=== PATIENT | male | born 1975 | race Caucasian/White ===

== ENCOUNTER 2017-05-01 08:11 | Emergency (ER) | payer OTHER ==
[~2017-05-01] VITALS: Ht 160 cm; Wt 64.1 kg
[~2017-05-01 08:11] MED LIST: IBUP-1277 PO; PHENPAK2 PO
[2017-05-01 08:16] VITALS: TEMP 36.7; Ht 160 cm; Wt 64.1 kg
[2017-05-01] MEDS ORDERED: SODIUM CHLORIDE 0.9% 1000ML 2,000 ML IV STA (08:23)
[2017-05-01 08:44] LABS: BASO % 0.2 %; BASO ABS # 0.01 K/uL (0-0.2); COMPLETE YES; EOS % 0.8 %; HEMATOCRIT 41.3 % (42-52); IG% 0.2 %; LYMPH % 19.9 %; LYMPH ABS # 0.94 K/uL (1.2-3.4); MEAN CELL VOLUME 86.4 fL (80-100); MEAN CORPUSCULAR HEMOGLOBIN 30.5 pg (25-34); MEAN CORPUSCULAR HGB CONC 35.4 g/dl (32-36); MEAN PLATELET VOLUME 9.6 fL (7.4-10.4); MONO % 8.1 %; NEUT % 70.8 %; PLATELET COUNT 242 K/uL (130-400); RED BLOOD COUNT 4.78 M/uL (4.7-6.1); WHITE BLOOD COUNT 4.72 K/uL (4.8-10.8)
[2017-05-01 09:02] LABS: BUN/CREATININE RATIO 5.9 (10-20); CREATININE 0.97 mg/dl (0.60-1.40); POTASSIUM 3.6 mmol/L (3.5-5.1)
[2017-05-01 10:04] LABS: URINE APPEARANCE CLEAR (CLEAR); URINE BILIRUBIN NEG (NEG); URINE COLOR YELLOW; URINE NITRITE NEG (NEG); URINE SPECIFIC GRAVITY 1.008 (1.000-1.030); UROBILINOGEN NEG (NEG)
[2017-05-01 10:10] LABS: MANUAL MICROSCOPIC REQUIRED? NO; REVIEW REQ? NO
--- NOTE | 2017-05-01 10:39 | EMERGENCY ROOM VISIT NOTE ---
History Report prepared by Kamille: Jordy Ayala Under the Supervision of: Dr. Lorenzo Leyva M.D. First contact with patient: 08:22 Chief Complaint: ABDOMINAL PAIN Stated Complaint: SEVERE STOMACH PAIN/FLU Nursing Triage Summary: Abd pain, nausea. Pt states that he had vomited and had diarrhea all through the night. "There is nothing left in me." per pt. History of Present Illness The patient is a 41 year old male who presents to the Emergency Room with complaints of intermittent vomiting starting last night, and he states that he last vomited around 0330. He currently rates his discomfort as a 7/10 in severity. He additionally states that he has been having diarrhea and diffuse abdominal pain. He states that he has not eaten anything unusual recently, and he states that his coworker was sick about a week ago. The patient states that he drank some coca-cola and some energy drink, and he did not vomit afterwards. He denies any active medical problems. Pt denies LOC, headache, fevers, chills, diaphoresis, visual changes, neck pain, chest pain, breathing difficulties, back pain, melena, hematochezia, urinary symptoms, numbness, weakness, lymphadenopathy, rash, or other complaints. Source of History: patient Onset: last night Position: other (global) Quality: other (vomiting) Timing: intermittent Associated Symptoms: + abdominal pain, + diarrhea Review of Systems See HPI for pertinent positives and negatives. A total of ten systems were reviewed and were otherwise negative. Past Medical & Surgical Surgical Problems: (1) H/O removal of cyst Family History Cancer FH: heart disease Social History Smoking Status: Former Smoker Alcohol Use: occasionally Marital Status: Housing Status: lives with family Occupation Status: employed Current/Historical Medications No Active Prescriptions or Reported Meds Allergies Coded Allergies: BEE STING (Unverified Allergy, Unknown, ., 05/01/17) Physical Exam Vital Signs Date Time Temp Pulse Resp B/P (MAP) Pulse Ox O2 Delivery O2 Flow Rate FiO2 05/01/17 11:09 64 16 115/69 99 05/01/17 10:33 58 16 111/67 99 05/01/17 08:16 36.7 84 16 122/82 99 Room Air Physical Exam GENERAL: Awake, alert, well-appearing, in no distress HENT: Normocephalic, atraumatic. Oropharynx unremarkable. EYES: Normal conjunctiva. Sclera non-icteric. NECK: Supple. No nuchal rigidity. FROM. No JVD. RESPIRATORY: Clear to auscultation. CARDIAC: Regular rate, normal rhythm. Extremities warm and well perfused. Pulses equal. ABDOMEN: Minimal diffuse abdominal tenderness. Soft, non-distended. No rebound or guarding. No masses. RECTAL: Deferred. MUSCULOSKELETAL: Chest examination reveals no tenderness. The back is symmetrical on inspection without obvious abnormality. There is no CVA tenderness to palpation. No joint edema. LOWER EXTREMITIES: Calves are equal size bilaterally and non-tender. No edema. No discoloration. NEURO: Normal sensorium. No sensory or motor deficits noted. SKIN: No rash or jaundice noted. Medical Decision & Procedures Laboratory Results 05/01/17 08:35 Red Blood Count 4.78, Mean Corpuscular Volume 86.4, Mean Corpuscular Hemoglobin 30.5, Mean Corpuscular Hemoglobin Concent 35.4, Mean Platelet Volume 9.6, Neutrophils (%) (Auto) 70.8, Lymphocytes (%) (Auto) 19.9, Monocytes (%) (Auto) 8.1, Eosinophils (%) (Auto) 0.8, Basophils (%) (Auto) 0.2, Neutrophils # (Auto) 3.34, Lymphocytes # (Auto) 0.94, Monocytes # (Auto) 0.38, Eosinophils # (Auto) 0.04, Basophils # (Auto) 0.01 05/01/17 08:35 Test 05/01/17 08:35 05/01/17 09:40 White Blood Count 4.72 K/uL (4.8-10.8) Red Blood Count 4.78 M/uL (4.7-6.1) Hemoglobin 14.6 g/dL (14.0-18.0) Hematocrit 41.3 % (42-52) Mean Corpuscular Volume 86.4 fL (80-100) Mean Corpuscular Hemoglobin 30.5 pg (25-34) Mean Corpuscular Hemoglobin Concent 35.4 g/dl (32-36) Platelet Count 242 K/uL (130-400) Mean Platelet Volume 9.6 fL (7.4-10.4) Neutrophils (%) (Auto) 70.8 % Lymphocytes (%) (Auto) 19.9 % Monocytes (%) (Auto) 8.1 % Eosinophils (%) (Auto) 0.8 % Basophils (%) (Auto) 0.2 % Neutrophils # (Auto) 3.34 K/uL (1.4-6.5) Lymphocytes # (Auto) 0.94 K/uL (1.2-3.4) Monocytes # (Auto) 0.38 K/uL (0.11-0.59) Eosinophils # (Auto) 0.04 K/uL (0-0.5) Basophils # (Auto) 0.01 K/uL (0-0.2) RDW Standard Deviation 40.5 fL (36.4-46.3) RDW Coefficient of Variation 12.7 % (11.5-14.5) Immature Granulocyte % (Auto) 0.2 % Immature Granulocyte # (Auto) 0.01 K/uL (0.00-0.02) Anion Gap 8.0 mmol/L (3-11) Est Creatinine Clear Calc Drug Dose 80.6 ml/min Estimated GFR () 111.9 Estimated GFR (Non- 96.6 BUN/Creatinine Ratio 5.9 (10-20) Calcium Level 9.0 mg/dl (8.5-10.1) Total Bilirubin 0.5 mg/dl (0.2-1) Direct Bilirubin 0.2 mg/dl (0-0.2) Aspartate Amino Transf (AST/SGOT) 11 U/L (15-37) Alanine Aminotransferase (ALT/SGPT) 21 U/L (12-78) Alkaline Phosphatase 79 U/L (45-117) Total Protein 6.9 gm/dl (6.4-8.2) Albumin 3.9 gm/dl (3.4-5.0) Lipase 114 U/L (73-393) Urine Color YELLOW Urine Appearance CLEAR (CLEAR) Urine pH 7.0 (4.5-7.5) Urine Specific [place] 1.008 (1.000-1.030) Urine Protein NEG (NEG) Urine Glucose (UA) NEG (NEG) Urine Ketones NEG (NEG) Urine Occult Blood NEG (NEG) Urine Nitrite NEG (NEG) Urine Bilirubin NEG (NEG) Urine Urobilinogen NEG (NEG) Urine Leukocyte Esterase NEG (NEG) Laboratory results reviewed by me Medications Administered Medications (Trade) Dose Ordered Sig/Dylan Route Start Time Stop Time Status Last Admin Dose Admin Sodium Chloride 2,000 ml @ 999 mls/hr Q2H1M STAT IV 05/01/17 08:23 05/01/17 10:23 DC 05/01/17 08:38 999 MLS/HR Ondansetron HCl (ZOFRAN ODT 4MG Home Pack) 1 [facility] UD ONCE PO 05/01/17 11:00 05/01/17 11:01 DC 05/01/17 11:08 1 [facility] ED Course 0822: The patient was evaluated in room B8. A complete history and physical exam was performed. 0823: Sodium Chloride 2000 ml @ 999 mls/hr IV 1034: I reevaluated the patient, and he is feeling better. He is getting a PO challenge 1100: Zofran ODT 4mg 1 Home Pack PO 1101: The patient is feeling better and tolerating oral fluids. He will be discharged home. Medical Decision Prior records/ancillary studies reviewed. Triage Nursing notes reviewed and agree them. The patient's history was concerning for nausea, vomiting, diarrhea, and abdominal pain. Differential diagnosis: Etiologies such as gastroenteritis, food borne illness, infections, appendicitis , diverticulitis, inflammatory bowel disease, GI bleed, biliary pathology, as well as others were entertained. Physical examination findings: As above. Benign abdomen. ER treatment provided: IV hydration 2 L NSS. 4 mg Zofran On reassessment the patient felt better. Patient was tolerating p.o. intake. Diagnostics interpretation by me: The labs revealed an unremarkable cbc, chemistry panel, LFTs, and lipase. Urinalysis negative. Imaging studies: Deferred The patient presented with nausea, vomiting, and diarrhea. Clinically he is doing well. He had a benign abdomen. Blood work was obtained. He had no leukocytosis. LFTs and lipase were unremarkable. He was hydrated as above. He did very well this. He is tolerating oral fluids and crackers. I discussed conservative management. The patient felt comfortable. This is most consistent with a viral process. If he worsens in any way he will be back. By the evaluation outlined above emergent etiologies such as appendicitis, diverticulitis, mesenteric ischemia, aortic pathology, inflammatory bowel disease, renal colic, PUD, biliary pathology, UTI, as well as others were deemed relatively unlikely. The patient was informed about the findings as listed above. All questions were answered and he was pleased with the treatment. Return instructions were outlined and the patient was discharged in stable condition. Outpatient prescription management: Zofran home pack Referral: The patient was referred to his primary care physician for follow-up in 2 to 3 days for a recheck of the current condition. Medication Reconcilliation Current Medication List: was personally reviewed by me Blood Pressure Screening Patient's blood pressure: Normal blood pressure Impression Primary Impression: Nausea vomiting and diarrhea Scribe Attestation The scribe's documentation has been prepared under my direction and personally reviewed by me in its entirety. I confirm that the note above accurately reflects all work, treatment, procedures, and medical decision making performed by me. Departure Information Dispostion Home / Self-Care Prescriptions No Active Prescriptions or Reported Meds Referrals Gordon Lal M.D. (PCP) Forms Call Back Authorization, HOME CARE DOCUMENTATION FORM, IMPORTANT VISIT INFORMATION, Work Instructions Patient Instructions My [facility] Additional Instructions VOMITING INSTRUCTIONS: Zofran(odansetron) tablets 4mg: Take one and allow it to dissolve in your mouth every four to six hours as needed for nausea or vomiting. Ibuprofen(Motrin, Advil) may be used for fever or pain. Use 600mg every six hours as needed. Take with food. Avoid using more than 2400mg in a 24 hour period. Do not use 2400mg per day for more than three consecutive days without physician direction. Prolonged inappropriate use can lead to stomach upset or ulcers. (AND/OR) Acetaminophen(Tylenol) may be used for fever or pain. Use 1000mg every six hours as needed. Avoid using more than 4000mg in a 24 hour period. Rest and drink plenty of fluids as tolerated. Slow sips of water or sports drinks are recommended instead of large amounts all at once. Continue current medications. Once your stomach is settled start with a clear liquid diet (jello, soup broth, etc.) and then advance as tolerated. You should avoid full, heavy meals for about 24 hrs from the time your symptoms resolved. Return to the ER for persistent vomiting, fevers, abdominal pain, chest pains, difficulty breathing, black or bloody stools, worsening of your condition, or as needed. Follow up with your primary physician in 2-3 days for a recheck of your current condition
[2017-05-01] MEDS ORDERED: ONDANSETRON HOME PACK 4MG OD TAB PO ONE (11:00)
[2017-05-01 11:09] VITALS: BP 115/69; PULSE 64; O2SAT 99
== END 2017-05-01 11:11 | disposition home or self-care (01) ==
LOC: C.EDB 08:12
DX: R11.2 Nausea with vomiting, unspecified (principal); R19.7 Diarrhea, unspecified; Z80.9 Family history of malignant neoplasm, unspecified; Z87.891 Personal history of nicotine dependence

== ENCOUNTER 2017-08-16 12:20 | Emergency (ER) | payer OTHER ==
[2017-08-16 12:22] VITALS: TEMP 36.4; Ht 160 cm
[2017-08-16] MEDS ORDERED: SODIUM CHLORIDE 0.9% 1000ML 1,000 ML IV STA (12:35)
[2017-08-16] MEDS ORDERED: ONDANSETRON INJ 2 MG/ML 2 ML VIAL IV STA (12:35)
[2017-08-16] MEDS: MoRPHine SULFATE 4 MG/ML 1 ML CARP\\VIAL IV PRN ×3 (12:43→13:25)
--- NOTE | 2017-08-16 12:45 | EMERGENCY ROOM VISIT NOTE ---
History Report prepared by Kamille: Jordy Ayala Under the Supervision of: Dr. Roman Pizarro D.O. First contact with patient: 12:28 Chief Complaint: ABDOMINAL PAIN Stated Complaint: STOMACH PAIN History of Present Illness The patient is a 42 year old male who presents to the Emergency Room with complaints of constant abdominal pain that started around an hour ago which intermittently worsens. He currently rates his discomfort as a 10/10 in severity. The patient states that the pain does not radiate into his back or neck, though it radiates into his testicles. He denies any vomiting, chest pain , shortness of breath, hematuria, and diarrhea. He notes that he drinks alcohol almost daily, though he denies any liver problems. The patient does not take any medications daily. He has a history of a pilonidal cyst removal. The patient has no history of kidney stones or diverticulitis. Source of History: patient Onset: an hour ago Position: abdomen Symptom Intensity: 10/10 Timing: constant Associated Symptoms: No neck pain, No chest pain, No SOB, No vomiting, No back pain, No diarrhea, No urinary symptoms Note: Associated symptoms: Testicle pain Review of Systems See HPI for pertinent positives & negatives. A total of 10 systems reviewed and were otherwise negative. Past Medical & Surgical Surgical Problems: (1) H/O removal of cyst Family History Cancer FH: heart disease Social History Smoking Status: Former Smoker Alcohol Use: occasionally Marital Status: Housing Status: lives with family Occupation Status: employed Current/Historical Medications Scheduled Omeprazole (Prilosec), 40 MG PO DAILY Tamsulosin Hcl (Flomax), 0.4 MG PO DAILY Scheduled PRN Oxycodone Immediate Rel Tab (Roxicodone Ir), 1-2 TAB PO Q4H PRN for Severe Pain Allergies Coded Allergies: BEE STING (Unverified Allergy, Unknown, ., 08/16/17) Physical Exam Vital Signs Date Time Temp Pulse Resp B/P (MAP) Pulse Ox O2 Delivery O2 Flow Rate FiO2 08/16/17 15:39 55 18 142/92 100 08/16/17 13:44 76 16 115/73 98 Room Air 08/16/17 13:07 62 08/16/17 12:22 36.4 84 20 167/81 98 Room Air Physical Exam GENERAL: Patient is awake, alert, very anxious appearing and uncomfortable. Appears to be in significant pain. EYES: The conjunctivae are clear. The pupils are round and reactive. EARS, NOSE, MOUTH AND THROAT: The nose is without any evidence of any deformity. Mucous membranes are moist tongue is midline NECK: The neck is nontender and supple. RESPIRATORY: Normal respiratory effort is noted there is no evidence of wheezing rhonchi or rales CARDIOVASCULAR: Regular rate and rhythm noted there no murmurs rubs or gallops normal S1 normal S2 GASTROINTESTINAL: The abdomen is mildly distended and diffusely tender with specific tenderness in the left upper and lower quadrant with mild guarding. BACK: No midline tenderness appreciated. There is left CVA tenderness to percussion. Range of motion appears to be intact. MUSCULOSKELETAL/EXTREMITIES: There is no evidence of gross deformity full range of motion is noted in the hips and shoulders SKIN: There is no obvious evidence of any rash. There are no petechiae, pallor or cyanosis noted. NEUROLOGIC: Patient is awake alert and oriented x3 Medical Decision & Procedures ER Provider Diagnostic Interpretation: Radiology results as stated below per my review and radiologist interpretation: CT OF THE ABDOMEN AND PELVIS WITHOUT CONTRAST CLINICAL HISTORY: Left flank pain. COMPARISON STUDY: Chest radiograph and abdominal series October 30, 2015. TECHNIQUE: Axial images of the abdomen and pelvis were obtained without IV contrast. Images were reviewed in the axial, sagittal, and coronal planes. A dose lowering technique was utilized adhering to the principles of ALARA. FINDINGS: Lung bases are clear. A 3 mm left ureterovesical junction calculus results in mild to moderate left hydroureteronephrosis. No additional urinary calculi are identified. Evaluation of the remainder of the abdomen and pelvis is suboptimal on this unenhanced exam. The liver, spleen, adrenal glands and pancreas are normal. There are suspected diverticulum of the second portion of the duodenum. There is no evidence for a bowel obstruction. The appendix is normal. There is no lymphadenopathy or ascites. No suspicious skeletal lesions are identified. IMPRESSION: 3 mm left ureterovesical junction calculus which results in mild to moderate left hydroureteronephrosis. Electronically signed by: Tejas Trinidad M.D. 08/16/2017 1:08 PM Dictated Date/Time: 08/16/2017 12:57 PM Laboratory Results 08/16/17 12:35 Red Blood Count 4.87, Mean Corpuscular Volume 88.3, Mean Corpuscular Hemoglobin 30.8, Mean Corpuscular Hemoglobin Concent 34.9, Mean Platelet Volume 10.0, Neutrophils (%) (Auto) 64.4, Lymphocytes (%) (Auto) 27.3, Monocytes (%) (Auto) 7.0, Eosinophils (%) (Auto) 0.8, Basophils (%) (Auto) 0.3, Neutrophils # (Auto) 4.14, Lymphocytes # (Auto) 1.75, Monocytes # (Auto) 0.45, Eosinophils # (Auto) 0.05, Basophils # (Auto) 0.02 08/16/17 12:35 Test 08/16/17 12:35 08/16/17 14:39 White Blood Count 6.42 K/uL (4.8-10.8) Red Blood Count 4.87 M/uL (4.7-6.1) Hemoglobin 15.0 g/dL (14.0-18.0) Hematocrit 43.0 % (42-52) Mean Corpuscular Volume 88.3 fL (80-100) Mean Corpuscular Hemoglobin 30.8 pg (25-34) Mean Corpuscular Hemoglobin Concent 34.9 g/dl (32-36) Platelet Count 291 K/uL (130-400) Mean Platelet Volume 10.0 fL (7.4-10.4) Neutrophils (%) (Auto) 64.4 % Lymphocytes (%) (Auto) 27.3 % Monocytes (%) (Auto) 7.0 % Eosinophils (%) (Auto) 0.8 % Basophils (%) (Auto) 0.3 % Neutrophils # (Auto) 4.14 K/uL (1.4-6.5) Lymphocytes # (Auto) 1.75 K/uL (1.2-3.4) Monocytes # (Auto) 0.45 K/uL (0.11-0.59) Eosinophils # (Auto) 0.05 K/uL (0-0.5) Basophils # (Auto) 0.02 K/uL (0-0.2) RDW Standard Deviation 40.6 fL (36.4-46.3) RDW Coefficient of Variation 12.6 % (11.5-14.5) Immature Granulocyte % (Auto) 0.2 % Immature Granulocyte # (Auto) 0.01 K/uL (0.00-0.02) Anion Gap 6.0 mmol/L (3-11) Estimated GFR () 98.7 Estimated GFR (Non- 85.2 BUN/Creatinine Ratio 15.0 (10-20) Calcium Level 9.0 mg/dl (8.5-10.1) Total Bilirubin 0.3 mg/dl (0.2-1) Direct Bilirubin < 0.1 mg/dl (0-0.2) Aspartate Amino Transf (AST/SGOT) 11 U/L (15-37) Alanine Aminotransferase (ALT/SGPT) 25 U/L (12-78) Alkaline Phosphatase 96 U/L (45-117) Total Protein 7.2 gm/dl (6.4-8.2) Albumin 3.9 gm/dl (3.4-5.0) Lipase 1499 U/L (73-393) Urine Color YELLOW Urine Appearance CLEAR (CLEAR) Urine pH 5.0 (4.5-7.5) Urine Specific [place] 1.028 (1.000-1.030) Urine Protein NEG (NEG) Urine Glucose (UA) NEG (NEG) Urine Ketones TRACE (NEG) Urine Occult Blood 1+ (NEG) Urine Nitrite NEG (NEG) Urine Bilirubin NEG (NEG) Urine Urobilinogen NEG (NEG) Urine Leukocyte Esterase NEG (NEG) Urine WBC (Auto) 1-5 /hpf (0-5) Urine RBC (Auto) 0-4 /hpf (0-4) Urine Hyaline Casts (Auto) 1-5 /lpf (0-5) Urine Epithelial Cells (Auto) 5-10 /lpf (0-5) Urine Bacteria (Auto) NEG (NEG) Laboratory results per my review. Medications Administered Medications (Trade) Dose Ordered Sig/Ydlan Route Start Time Stop Time Status Last Admin Dose Admin Sodium Chloride 1,000 ml @ 999 mls/hr Q1H1M STAT IV 08/16/17 12:35 08/16/17 13:35 DC 08/16/17 12:35 999 MLS/HR Ondansetron HCl (Zofran Inj) 4 mg NOW STAT IV 08/16/17 12:35 08/16/17 12:37 DC 08/16/17 12:43 4 MG Morphine Sulfate (MoRPHine SULFATE INJ) 4 mg Q15M PRN IV 08/16/17 12:45 08/16/17 16:02 DC 08/16/17 13:25 4 MG Tamsulosin HCl (Flomax Cap) 0.4 mg NOW ONCE PO 08/16/17 13:30 08/16/17 13:31 DC 08/16/17 13:25 0.4 MG ED Course 1228: The patient was evaluated in room C1. A complete history and physical examination were performed. 1235: Zofran 4mg IV, NSS 1,000 ml @ 999 mls/hr IV 1319: I reevaluated the patient, and he was resting comfortably. 1330: Flomax Cap 0.4mg PO 1511: Upon reevaluation, the patient is doing well. I discussed the results and treatment plan with him. He verbalized agreement of the treatment plan. He was discharged home. Medical Decision Differential diagnosis: Etiologies such as renal colic, appendicitis, diverticulitis, mesenteric ischemia, aortic pathology, infections, inflammatory bowel disease, PUD, biliary pathology, UTI, as well as others were entertained. Nursing notes reviewed. The patient is a 42-year-old male who presented to the emergency department for an evaluation of flank pain. The patient's pain was very acute in onset appears to be consistent with renal colic. He also uses alcohol daily and had an elevated lipase. Certainly his overall condition does not appear to be consistent with pancreatitis but he was advised to drink plenty clear liquids and avoid further alcoholic beverages. The patient was treated with IV fluids IV pain medicine and IV antiemetics. On subsequent reevaluation he was feeling much better. He was encouraged to rest and avoid any strenuous activity. He was also encouraged to continue all medications as prescribed. I also recommended that he follow-up with his primary care physician for further evaluation but return to the emergency department immediately if symptoms change worsen or the need arises. Medication Reconcilliation Current Medication List: was personally reviewed by me Blood Pressure Screening Patient's blood pressure: Elevated blood pressure Blood pressure disposition: Elevated BP felt to be situational Impression Primary Impression: Kidney stone Additional Impressions: Ureteral colic Pancreatitis Scribe Attestation The scribe's documentation has been prepared under my direction and personally reviewed by me in its entirety. I confirm that the note above accurately reflects all work, treatment, procedures, and medical decision making performed by me. Departure Information Dispostion Home / Self-Care Prescriptions Omeprazole (PRILOSEC) 40 Mg Cap 40 MG PO DAILY, #30 CAP Prov: Roman Pizarro, DO 08/16/17 Tamsulosin Hcl (FLOMAX) 0.4 Mg Cap 0.4 MG PO DAILY, #10 CAP Prov: Roman Pizarro, DO 08/16/17 Oxycodone Immediate Rel Tab (ROXICODONE IR) 5 Mg Tab 1-2 TAB PO Q4H Y for Severe Pain, #24 TAB Prov: Roman Pizarro, DO 08/16/17 Referrals Gordon Lal M.D. (PCP) Forms Call Back Authorization, HOME CARE DOCUMENTATION FORM, IMPORTANT VISIT INFORMATION, Work Instructions Patient Instructions Kidney Stones, [facility], Pancreatitis Additional Instructions Continue all medications as prescribed. Drink plenty clear liquids. Avoid any alcoholic beverages. Continue using Motrin and Tylenol as directed for mild pain. Return to the emergency apartment immediately if symptoms change worsen or the need arises. Problem Qualifiers Additional Impressions: Pancreatitis Chronicity: acute Pancreatitis type: alcohol induced Acute pancreatitis complication: unspecified Qualified Codes: K85.20 - Alcohol induced acute pancreatitis without necrosis or infection
[2017-08-16 12:51] LABS: BASO % 0.3 %; BASO ABS # 0.02 K/uL (0-0.2); EOS % 0.8 %; EOS ABS # 0.05 K/uL (0-0.5); IG# 0.01 K/uL (0.00-0.02); LYMPH % 27.3 %; LYMPH ABS # 1.75 K/uL (1.2-3.4); MEAN CELL VOLUME 88.3 fL (80-100); MEAN CORPUSCULAR HEMOGLOBIN 30.8 pg (25-34); MEAN CORPUSCULAR HGB CONC 34.9 g/dl (32-36); MONO ABS # 0.45 K/uL (0.11-0.59); NEUT % 64.4 %; NEUT ABS # 4.14 K/uL (1.4-6.5); PLATELET COUNT 291 K/uL (130-400); RED CELL DISTRIBUTION WIDTH CV 12.6 % (11.5-14.5); RED CELL DISTRIBUTION WIDTH SD 40.6 fL (36.4-46.3); WHITE BLOOD COUNT 6.42 K/uL (4.8-10.8)
--- NOTE | 2017-08-16 13:09 | DIAGNOSTIC IMAGING REPORT ---
CT OF THE ABDOMEN AND PELVIS WITHOUT CONTRAST CLINICAL HISTORY: Left flank pain. COMPARISON STUDY: Chest radiograph and abdominal series October 30, 2015. TECHNIQUE: Axial images of the abdomen and pelvis were obtained without IV contrast. Images were reviewed in the axial, sagittal, and coronal planes. A dose lowering technique was utilized adhering to the principles of ALARA. FINDINGS: Lung bases are clear. A 3 mm left ureterovesical junction calculus results in mild to moderate left hydroureteronephrosis. No additional urinary calculi are identified. Evaluation of the remainder of the abdomen and pelvis is suboptimal on this unenhanced exam. The liver, spleen, adrenal glands and pancreas are normal. There are suspected diverticulum of the second portion of the duodenum. There is no evidence for a bowel obstruction. The appendix is normal. There is no lymphadenopathy or ascites. No suspicious skeletal lesions are identified. IMPRESSION: 3 mm left ureterovesical junction calculus which results in mild to moderate left hydroureteronephrosis. Electronically signed by: Tejas Trinidad M.D. 08/16/2017 1:08 PM Dictated Date/Time: 08/16/2017 12:57 PM
[2017-08-16 13:12] LABS: ALBUMIN 3.9 gm/dl (3.4-5.0); ALT/SGPT 25 U/L (12-78); AST/SGOT 11 U/L (15-37); BLOOD UREA NITROGEN 16 mg/dl (7-18); CARBON DIOXIDE 24 mmol/L (21-32); CREATININE 1.07 mg/dl (0.60-1.40); GLUCOSE 137 mg/dl (70-99); LIPASE 1499 U/L (73-393); POTASSIUM 3.5 mmol/L (3.5-5.1); SODIUM 140 mmol/L (136-145)
[2017-08-16 13:14] LABS: ALKALINE PHOSPHATASE 96 U/L (45-117); TOTAL PROTEIN 7.2 gm/dl (6.4-8.2)
[2017-08-16] MEDS ORDERED: TAMSULOSIN HCL 0.4 MG CAP PO ONE (13:30)
[2017-08-16] MEDS ORDERED: TAMS0.4C38 PO (15:22)
[2017-08-16] MEDS ORDERED: OMEP40CA41 PO (15:22)
[2017-08-16] MEDS ORDERED: OXYC1TAB3 PO (15:22)
[2017-08-16 15:39] VITALS: BP 142/92; PULSE 55; O2SAT 100
== END 2017-08-16 15:41 | disposition home or self-care (01) ==
LOC: C.EDB 12:21 → C.EDC 15:41
DX: N20.0 Calculus of kidney (principal); N23 Unspecified renal colic; K85.20 Alcohol induced acute pancreatitis without necrosis or infection; Z87.891 Personal history of nicotine dependence; Z98.890 Other specified postprocedural states